=== PATIENT | female | born 1975 | race Caucasian/White ===

== ENCOUNTER → 2016-08-20 | Outpatient (CLI) | payer MEDICAID ==
[~2016-08-20] MED LIST: ACETAMINOPHEN-H1 TA2 PO; ANTIVERT GENERI25 MG PO; CIPRO 500MG TA500 MG PO; CLOMIPRAMINE HC50 M1 PO; DARVOCET-N 1001 EACH PO; DEPAKOTE 500MG500 MG PO; DIAZEPAM5 MG PO; DIVALPROEX SOD125 MG PO; DOXYCYCLINE MO100 MG PO; FLAGYL 500MG.500 MG PO; FLUVOXAMINE50 MG PO; MAXALT10 MG PO; MECLIZINE HYDRO25 MG PO; NORCO 325 MG-51 TAB PO; NORTRIPTYLINE H50 MG PO; NORTRIPTYLINE25 M1 PO; NORTRIPTYLINE50 MG PO; OXCARBAZEPINE150 M1 PO; PAMELOR75 MG PO; PERCOCET 5/3251 EACH PO; PHENERGAN 25MG.25 M1 PO; PRAZOSIN HYDROCH1 MG PO; PRAZOSIN PO; PROVERA10 MG PO; RIZATRIPTAN BENZ5 MG PO; TAMIFLU 75MG CA75 MG PO; TAMIFLU75 MG PO; TYLENOL W/CODEI1 TA4 PO; ULTRAM 50 MG TA50 MG PO; VALIUM 5MG TABLE5 MG PO; VICODIN 5/500 T1 TAB PO; ZITHROMAX Z PA250 MG PO; ZOFRAN ODT4 MG PO; [UNRECOGNIZED DRUG - OTHER] PO
[2016-08-20 19:43] LABS: AMPHETAMINES/METAMPHETAMINES NEGATIVE ng/mL (<1000)
[2016-08-25 03:38] LABS: Opiates Negative (Cutoff=100)
== END ==
LOC: LAB 17:58
PROVIDERS: Emergency Medicine
DX: Z79.899 Other long term (current) drug therapy (principal)

== ENCOUNTER → 2016-11-14 | Outpatient (CLI) | payer MEDICAID ==
[~2016-11-14] MED LIST changes: +GENTAMICIN O5 ML/BOT OP; +PREDNISONE 20MG20 MG PO
[2016-11-14 16:58] LABS: AMPHETAMINES/METAMPHETAMINES NEGATIVE ng/mL (<1000)
== END ==
LOC: LAB 15:20
PROVIDERS: Emergency Medicine
DX: Z79.899 Other long term (current) drug therapy (principal)

== ENCOUNTER → 2016-12-26 | Outpatient (CLI) | payer MEDICAID ==
[2016-12-26 16:44] LABS: AMPHETAMINES/METAMPHETAMINES NEGATIVE ng/mL (<1000)
== END ==
LOC: LAB 15:39
PROVIDERS: Emergency Medicine
DX: Z79.899 Other long term (current) drug therapy (principal)

== ENCOUNTER → 2017-02-23 | Outpatient (CLI) | payer MEDICAID ==
[2017-02-23 21:12] LABS: AMPHETAMINES/METAMPHETAMINES NEGATIVE ng/mL (<1000)
== END ==
LOC: LAB 18:37
PROVIDERS: Emergency Medicine
DX: Z79.899 Other long term (current) drug therapy (principal)